=== PATIENT | male | born 1990 | race Caucasian/White ===

== ENCOUNTER → 2020-10-10 | Outpatient (CLI) | payer BC ==
--- NOTE | 2020-10-10 16:25 | REPVR ---
PROCEDURE INFORMATION: Exam: MR Lumbar Spine Without Contrast Exam date and time: 10/10/2020 3:09 PM Age: 30 years old Clinical indication: Patient HX: Low back pain, stiffness; Additional info: R/O spondy lt side/hnp l4-5/transitional anatomy TECHNIQUE: Imaging protocol: Multiplanar magnetic resonance images of the lumbar spine without intravenous contrast. COMPARISON: No relevant prior studies available. FINDINGS: Vertebrae: The marrow space has a normal signal intensity. Spinal cord: The conus is normal in size and ending at L2 and there is no evidence of abnormal bright signal intensity. The marrow space has a normal signal intensity L4-L5: There is moderate left paracentral disc protrusion with an annular tear causing moderate impression on the anterior left side of the thecal sac. There is also some facet hypertrophy. L5-S1: There is moderate left paracentral disc protrusion causing moderate impression on the anterior left side of the thecal sac. Soft tissues: Unremarkable. IMPRESSION: 1. The L5-S1 level demonstrates moderate left paracentral disc protrusion causing moderate impression on the anterior left side of the thecal sac. 2. The L4-L5 level demonstrates moderate left paracentral disc protrusion causing moderate impression on the anterior left side of the thecal sac. Electronically signed by: Marko Montenegro On 10/10/2020 16:24:56 PM
== END ==
LOC: M RAD 14:27
PROVIDERS: ATTEND Orthopaedic Surgery
DX: M47.26 Other spondylosis with radiculopathy, lumbar region (principal)